=== PATIENT | female | born 1980 | race Caucasian/White ===

== ENCOUNTER → 2016-10-16 13:35 | Observation (INO) ==
[2016-10-16 11:53] VITALS: PULSE 80; RESP 22; TEMP 98.3; O2SAT 97
[2016-10-16 12:24] VITALS: BP 135/77
[~2016-10-16 13:35] MED LIST: SALINE FLUSH 10ml SYRINGE IVF PRN
[2016-10-16 13:36] VITALS: BMI 39.6
== END | disposition home or self-care (01) ==
LOC: MC
PROVIDERS: ADMIT Obstetrics & Gynecology; ATTEND Obstetrics & Gynecology

== ENCOUNTER 2016-10-22 10:50 | Inpatient (IN) ==
[2016-10-22] MEDS ORDERED: FAMOTIDINE PB 20 MG/50 ML BAG IV ONE (11:04)
[2016-10-22] MEDS ORDERED: CEFAZOLIN PREMIX (MC ONLY) 2 GM/50 ML BAG IV ONE (11:04)
[2016-10-22] MEDS ORDERED: CITRIC ACID/SODIUM CITRATE 30ml PO ONE (11:04)
[2016-10-22] MEDS: LR 1,000 ML IV SCH ×3 (11:30→15:10)
[2016-10-22 11:32] VITALS: BMI 40.2
--- NOTE | 2016-10-22 11:57 | Anesthesia Preoperative Report ---
Anesthesia Preoperative Record - Date and Time Date: 10/22/16 Preoperative Diagnosis: previous C Section PIH Proposed Procedure: C Section NPO Since Date: 10/22/16 NPO Since Time: 07:00 (bread pastry) Allergies/Adverse Reactions: Allergies Allergy/AdvReac Type Severity Reaction Status Date / Time No Known Drug Allergies Allergy Unknown Verified 10/22/16 11:42 - Vital Signs Height and Weight: Height 5 ft 4.5 in Weight 107.955 kg Body Mass Index 40.2 - Medications Inpatient Medications: Current Medications Lactated Ringer's (Lactated Ringers) 1,000 mls @ 500 mls/hr IV .Q2H WILIAN Home Medications: Home Medications Medication Instructions Recorded Confirmed Type Acyclovir [Acyclovir] 10/22/16 History Valacyclovir HCl [Valacyclovir] 10/22/16 History Is Patient on Beta Mayank?: No - Medical History Gastrointestional: Reports: Gastroesophageal Reflux Disease, Morbid Obesity - Surgical History GI Surgery/Treatments: Reports: Cholecystectomy (6-7 years ago) Reproductive Surgery/Treatment: Reports: Section Anesthesia Reactions: None Hx Family Anesthesia Reaction: No History of Motion Sickness: No - Social History Smoking Status: Never smoker Hx Chewing Tobacco Use: No Second Hand Exposure: No Substance Use Type: does not use Alcohol Intake: never Alcohol Intake Frequency: does not drink - Pertinent Findings Laboratory: CBC and BMP 10/22/16 11:25 10/22/16 11:25 BMP 10/22/16 11:25 Sodium 137 Potassium 4.3 Chloride 109 H Carbon Dioxide 20 L BUN 11.0 Creatinine 0.5 L Glucose 75 Calcium 8.7 Liver Function 10/22/16 Range/Units 11:25 Total Bilirubin 0.30 (0.20-1.30) MG/DL AST 24 (14-36) U/L ALT 28 (9-52) U/L Alkaline Phosphatase 183 H (38-126) U/L Albumin 3.4 L (3.5-5.0) G/DL - Physical Exam Respiratory Exam: Present: lungs clear, bilateral breath sounds equal Cardiovascular Exam: Present: regular rate and rhythm, no murmur - Airway Assessment Mallampati Score: III TMD: 3 Fingerbreadths Neck Extension: good Overall Assessment: may be difficult mask vent, may be difficult intubation - ASA ASA Score: 3 - Plan Regional/Trunk Block: Spinal - Discussion Discussion: Discussed risks/options/alternatives of anesthesia and questions answered. Patient consents. Nursing pain assessment noted. Present for Discussion: family member, other (Fred saldivar speaking slovak ) Attestation Statement: Prior to the delivery of any anesthetic medication, I examined the patient, developed the plan, obtained the patient's consent and discussed the risk and benefits of the procedure with the patient/guardian. - Additional Information Seen by Anesthesia: Yes
[2016-10-22] MEDS ORDERED: NALOXONE 2 MG/2 ML INJECTION PFS IVP PRN (12:02)
[2016-10-22] MEDS ORDERED: NALBUPHINE 10 MG/ML INJECTION IVP PRN (12:02)
[2016-10-22] MEDS ORDERED: TRANEXAMIC ACID 1gm/NS 100ml IRR MIX IR ONE (12:33)
--- NOTE | 2016-10-22 12:38 | OB/GYN History & Physical ---
- History of Present Illness Date of Admission: 10/22/16 10:50 Reason for Admission: other History of Present Illness: 36 y/o with 2 prior LTCS presented at 37w6d with TN. Sent to L&D for PIH lab and RLTCS. Pt denies GONZALEZ reports occasional vision changes anddenies RUQ pain. Expected Date of Delivery: 11/06/16 : 4 Para: 2 Review of Systems - Review of Systems All systems: reviewed and no additional remarkable complaints except as stated - Respiratory Respiratory: Present: as per HPI - Gastrointestinal Gastrointestinal: Present: as per HPI - Genitourinary Genitourinary: Present: as per HPI Menstruation: Present: as per HPI - Integumentary/Breasts Integumentary: Present: as per HPI - Neurological Neurological: Present: as per HPI - Psychiatric Psychiatric: Present: as per HPI - Endocrine Endocrine: Present: as per HPI - Hematologic/Lymphatic Hematologic/Lymphatic: Present: as per HPI - Allergic/Immunologic Allergic/Immunologic: Present: as per HPI PFS Patient Stated Medical History Hypertension Yes Other Cardiology Yes: pt's mother had blood clot Gastroesophageal Reflux Yes Disease Herpes Yes: on acyclovir Maternal Gestational Diabetes No Now Yes Surgical History: LTCSx2 Family History: Non contributory - Social History Smoking status: Never smoker second hand exposure: No Substance use type: does not use Alcohol intake frequency: does not drink Current occupational status: unemployed Current occupation: Homemaker Current occupational exposures/hazards: No Does patient use chewing tobacco?: No Medications Home Medications Medication Instructions Recorded Confirmed Type Acyclovir [Acyclovir] 10/22/16 History Allergies Allergy/AdvReac Type Severity Reaction Status Date / Time No Known Drug Allergies Allergy Unknown Verified 10/22/16 11:42 Exam - Constitutional Present: no acute distress - Neck Exam Present: supple - Respiratory Exam Present: CTA bilaterally - Cardiovascular Exam Present: RRR - Abdominal Exam Present: soft, surgical scars Comments: Gravid - Extremities Exam Extremities: Present: non tender - Neurological Exam Present: alert, oriented X3 - Skin Exam Present: intact - Psychiatric Exam Present: normal affect LATEX SPOOLER Results - Labs CBC & Chem 7: 10/22/16 11:25 10/22/16 11:25 Antepartum Assessment and Plan (1) Term Current visit: Yes Status: Acute (2) Gestational hypertension Current visit: Yes Status: Acute Plan: Admit for C/S ([facility] Labs. P. ) (3) Herpes Current visit: Yes Status: Acute
[2016-10-22] MEDS ORDERED: FentaNYL 100 MCG/2 ML INJECTION ONE (12:47)
[2016-10-22] MEDS ORDERED: MORPHINE SULFATE PF 5mg/10ml INJ (Duramorph) ONE (12:51)
[2016-10-22] MEDS ORDERED: ONDANSETRON 4 MG/2 ML INJECTION ONE (12:51)
[2016-10-22] MEDS ORDERED: OXYTOCIN 10 UNIT/ML INJECTION ONE (12:51)
[2016-10-22] MEDS ORDERED: EPHEDRINE 50mg/ml INJECTION ONE (13:07)
[2016-10-22] MEDS ORDERED: OXYTOCIN DRIP 30 UNIT/500 ML ML IV SCH ×2 (13:45→14:15)
[2016-10-22] MEDS ORDERED: DiphenhydrAMINE 25 MG CAPSULE PO PRN (14:08)
[2016-10-22] MEDS ORDERED: SIMETHICONE 80 MG CHEWABLE TABLET PO PRN (14:08)
[2016-10-22] MEDS ORDERED: ONDANSETRON 4 MG/2 ML INJECTION IVP PRN (14:08)
[2016-10-22] MEDS ORDERED: IBUPROFEN 800 MG TABLET PO PRN (14:08)
[2016-10-22] MEDS ORDERED: HYDROCORTISONE 2.5% CREAM 30gm RECTALLY PRN (14:08)
[2016-10-22] MEDS ORDERED: ACETAMINOPHEN 500 MG TABLET PO PRN (14:08)
[2016-10-22] MEDS ORDERED: SALINE FLUSH 10ml SYRINGE IVF PRN (14:08)
--- NOTE | 2016-10-22 14:14 | Operative Note ---
Operative Note - Date of Operation Date of Operation: 10/22/16 - General : 4 Para: 2 Expected Date of Delivery: 11/06/16 Estimated or Known Gestational Age (weeks): 37 - Preoperative Diagnosis Previous Section, Gestational Hypertension - Postoperative Diagnosis previous section, Gestational Hypertension - Procedure Repeat, Low-transverse - Surgeon Surgeon: Surgeon: Julian Williamson DO - [employer] Mercedes Finn MD - Anesthesia Anesthesia Provider: Baldemar Reno CRNA Anesthesia Type: Spinal - Complications Complications: None - Estimated Blood Loss Estimated Blood Loss:: 600 - Findings Findings: viable female - APGARS : 8/9 - Haskell Weight 2810 kg - Name Haskell Name: Desi - Indications Indications: GHTN, PLTCS, Term - Description of Procedure Description of Procedure: See Dictation.
[2016-10-22] MEDS: D5LR 1,000 ML IV SCH (15:08)
[2016-10-22] MEDS: Oxycodone/Acetaminophen 5/325 1 TAB PO PRN ×2 (16:16→20:34)
--- NOTE | 2016-10-22 18:33 | Anesthesia Postoperative Note ---
- Date and Time Date: 10/22/16 Time: 18:33 - Status Patient Participated in Evaluation: Patient Participated in Person Vital Signs: Temperature 98.3 F 10/22/16 12:23 Pulse Rate 79 10/22/16 12:23 Respiratory Rate 16 10/22/16 12:23 Blood Pressure 145/73 H 10/22/16 12:23 Oxygen Delivery Method Room Air Respiratory Function: Airway Patent Cardiovascular Function: Regular Pulse EKG Rhythm: Normal Sinus Rhythm Mental Status: Alert and Oriented Pain Intensity: 0 Hydration: Taking PO Fluids Complications During Recover: None Apparent - Follow-Up Instructions Instructions: Per Surgeon
[2016-10-22] MEDS: SIMETHICONE 80 MG CHEWABLE TABLET PO SCH (20:34)
[2016-10-23] MEDS: SIMETHICONE 80 MG CHEWABLE TABLET PO SCH ×5 (00:49→22:55)
[2016-10-23] MEDS: Oxycodone/Acetaminophen 5/325 1 TAB PO PRN ×5 (00:49→22:54)
--- NOTE | 2016-10-23 08:25 | OB/GYN Progress Note ---
<Jazmyne Mcdonald - Last Filed: 10/23/16 08:21> OB-PP Progress Note - General POD:: POD1 - Subjective Date: 10/23/16 Lochia: Moderate Pain: contolled Voiding: voiding, not voiding Voiding: Alford DC'd approx. an hour ago. has not voided yet. Nausea or Vomiting Present: No - Objective Vital Signs: Last Vital Signs Temp 98.4 F 10/23/16 07:00 Pulse 73 10/23/16 07:00 Resp 16 10/23/16 07:00 BP 117/79 10/23/16 07:00 Pulse Ox 96 10/23/16 07:00 Urine Output: good General: alert and oriented Respiratory: non-labored Abdomen: fundus firm Incision: intact Incision: Tegaderm intact. Wound vac in place. Edema: none Laboratory: Laboratory Results - last 24 hr 10/22/16 10/22/16 10/22/16 11:25 11:25 11:26 WBC 12.3 H RBC 4.81 Hgb 9.2 L Hct 30.4 L MCV 63.2 L MCH 19.1 L MCHC 30.3 L RDW Std Deviation 38.0 Plt Count 213 MPV Not performed Immature Gran % (Auto) Not performed Neut % (Auto) Not performed Lymph % (Auto) Not performed Wayne % (Auto) Not performed Eos % (Auto) Not performed Baso % (Auto) Not performed Neut # Not performed Lymph # Not performed Wayne # Not performed Eos # Not performed Baso # Not performed Abs Immat Gran (auto) Not performed Neutrophils % (Manual) 68.0 H Band Neutrophils % 1.0 Lymphocytes % (Manual) 24.0 Monocytes % (Manual) 3.0 Eosinophils % (Manual) 4.0 Neutrophils # (Manual) 8.4 H Band Neutrophils # 0.1 Lymphocytes # (Manual) 3.0 Monocytes # (Manual) 0.4 Eosinophils # (Manual) 0.5 Polychromasia 1+ Poikilocytosis 2+ Anisocytosis 1+ Target Cells 1+ RBC Morph Comment Abnormal Turbidity < 20 Sodium 137 Potassium 4.3 Chloride 109 H Carbon Dioxide 20 L Anion Gap 8 BUN 11.0 Creatinine 0.5 L GFR Calculation 138 BUN/Creatinine Ratio 22 Glucose 75 Calculated Osmolality 262 Calcium 8.7 Total Bilirubin 0.30 Conjugated Bilirubin 0.00 Unconjugated Bilirubin 0.10 Icterus Index < 2 AST 24 ALT 28 Alkaline Phosphatase 183 H Total Protein 6.5 Albumin 3.4 L Globulin 3.1 Albumin/Globulin Ratio 1.1 Specimen Hemolysis < 15 Blood Type O Positive Antibody Screen Negative 10/22/16 17:38 WBC 17.4 H D RBC 4.93 Hgb 9.5 L Hct 31.1 L MCV 63.1 L MCH 19.3 L MCHC 30.5 L RDW Std Deviation 37.9 Plt Count 200 MPV Not performed Immature Gran % (Auto) Neut % (Auto) Lymph % (Auto) Wayne % (Auto) Eos % (Auto) Baso % (Auto) Neut # Lymph # Wayne # Eos # Baso # Abs Immat Gran (auto) Neutrophils % (Manual) Band Neutrophils % Lymphocytes % (Manual) Monocytes % (Manual) Eosinophils % (Manual) Neutrophils # (Manual) Band Neutrophils # Lymphocytes # (Manual) Monocytes # (Manual) Eosinophils # (Manual) Polychromasia Poikilocytosis Anisocytosis Target Cells RBC Morph Comment Turbidity Sodium Potassium Chloride Carbon Dioxide Anion Gap BUN Creatinine GFR Calculation BUN/Creatinine Ratio Glucose Calculated Osmolality Calcium Total Bilirubin Conjugated Bilirubin Unconjugated Bilirubin Icterus Index AST ALT Alkaline Phosphatase Total Protein Albumin Globulin Albumin/Globulin Ratio Specimen Hemolysis Blood Type Antibody Screen - Assessment (1) Term Status: Acute (2) Gestational hypertension Status: Acute (3) Herpes Status: Acute - Assessment Assessment: Repeat C/S - Plan Plan: routine care (Q&A with patient via [employer] medical interpreter. ) <Julian Williamson L - Last Filed: 10/23/16 18:02> OB-PP Progress Note - Subjective Date: 10/23/16 - Objective Vital Signs: Last Vital Signs Temp 98.3 F 10/23/16 15:45 Pulse 92 10/23/16 15:45 Resp 16 10/23/16 15:45 BP 146/83 H 10/23/16 15:45 Pulse Ox 95 10/23/16 15:45 Laboratory: Laboratory Results - last 24 hr 10/22/16 10/22/16 12:20 17:38 WBC 17.4 H D RBC 4.93 Hgb 9.5 L Hct 31.1 L MCV 63.1 L MCH 19.3 L MCHC 30.5 L RDW Std Deviation 37.9 Plt Count 200 MPV Not performed Creatinine 0.5 L GFR Calculation 138 Urine Protein 19 Urine Collection Time 24 Urine Total Volume 2.750 Urine Creatinine 44.6 Patient Height 163.8 Patient Weight 2810 Creat Clearance 24 Hr 34.0 L Ur Total Protein 24 Hr 522 H - Assessment (1) Term Status: Acute (2) Gestational hypertension Status: Acute (3) Herpes Status: Acute (4) Pre-eclampsia Comment: 24 TUP 300. BP continue in mild range. all other lab WNL. Status: Acute - Plan Plan: routine care S/P C/S POD #1 doing well, denies GONZALEZ,Vision changes, RUQ pain. RPOC.
[2016-10-23] MEDS: DOCUSATE CALCIUM 240 MG CAPSULE PO SCH (09:21)
[2016-10-23] MEDS: D5LR 1,000 ML IV SCH (09:33)
--- NOTE | 2016-10-23 15:43 | Operative Note ---
DATE OF PROCEDURE 10/22/2016 PREOPERATIVE DIAGNOSES 1. Previous section x 2. 2. Gestational hypertension. 3. 37 weeks and 6 days gestational age. POSTOPERATIVE DIAGNOSES Same; delivered. PROCEDURE Repeat low transverse section. SURGEON Dr. Julian Williamson TOOL PROFILING MACHINE SET UP OPERATOR Dr. Mercedes Finn ANESTHESIA Provided by Baldemar Reno CRNA Anesthesia type: Spinal COMPLICATIONS None. ESTIMATED BLOOD LOSS 600 ml FINDINGS Viable female in cephalic presentation, name Desi. Normal-appearing fallopian tubes and ovaries. Approximately 4 cm anterior fundal fibroid. INDICATIONS FOR PROCEDURE This is a 36-year-old, G4, P2-0-1-2, with two prior deliveries that presented to the office with gestational hypertension at 37 weeks gestational age with increasing blood pressures and decision was made to proceed with delivery. We discussed the indications for the procedure along with risk, benefits and alternatives including injury to bowel, bladder, ureters or infant , bleeding with the need for transfusion, , and infection. Questions were elicited and answered and decision was made with patient to proceed to the operating room. PROCEDURE DESCRIPTION In the operating room, spinal epidural was achieved without difficulty. The patient was then prepped and draped in dorsal spine position with a leftward tilt. Preoperative antibiotics and TXA were given. Time-out was performed. At this time a Pfannenstiel skin incision was made and carried through the underlying layers to the fascia. Fascia was then incised in the midline and the facial incision was extended sharply laterally with the Morton scissors. The fascial incision was a superior fascial incision. It was grasped with Marcial clamps, elevated and the rectus muscle dissected off sharply with the scalpel. The superior aspect of the fascial incision was then grasped with the Kochers and elevated and the rectus muscle dissected off with the Morton scissors. The rectus muscles were then sharply in the midline and the peritoneum was then entered bluntly. The peritoneal incision was then extended sharply superiorly and inferiorly with good visualization of the bladder. The bladder blade was then inserted and the bladder flap was created sharply. Bladder blade was then reinserted and the uterine incision was made transverse with a scalpel. Uterine incision was then extended bluntly and the amniotomy was performed, noting clear fluid. The was noted to be in cephalic presentation and was delivered atraumatically. Nose and mouth were suctioned by snuff blender in the room. Cord was clamped and cut and the infant was taken to the baby warmer. The uterus was then exteriorized and cleared of all clot and debris and the uterine incision was repaired with 1-0 Monocryl in a running- locked fashion. Excellent hemostasis was noted and the uterus was returned to the abdomen. Gutters were cleared of all clot and debris and the peritoneum was closed with 3-0 Monocryl in a running fashion and the fascia was then closed with 0 Vicryl in a running fashion. Incision was then irrigated and the subcu layer was closed with 2-0 plain gut in a running fashion and the skin was closed with 4-0 Monocryl subcuticular. A perineal wound care system was then applied. The patient tolerated the procedure well. Sponge, lap and needle counts were correct x 2 and the patient was taken to the recovery room in stable condition. [place]
[2016-10-23] MEDS: IBUPROFEN 800 MG TABLET PO PRN (16:04)
[2016-10-23 17:08] VITALS: RESP 16
[2016-10-23 23:17] VITALS: O2SAT 97
[2016-10-24] MEDS: Oxycodone/Acetaminophen 5/325 1 TAB PO PRN ×2 (05:18→10:12)
[2016-10-24 06:34] VITALS: BP 139/86; PULSE 89; TEMP 98.6
--- NOTE | 2016-10-24 08:16 | Discharge Instructions ---
Discharge Plan - Med Rec/Dispo Prescriptions: New Docusate Calcium [Surfak] 240 mg PO DAILY #30 capsule Ibuprofen [Motrin] 800 mg PO Q8H PRN #40 tablet PRN Reason: Pain Oxycodone/APAP 5/325 [Percocet 5/325] 1 - 2 tab PO Q4H PRN #30 tablet PRN Reason: Pain No Action Acyclovir [Acyclovir]
[2016-10-24] MEDS: IBUPROFEN 800 MG TABLET PO PRN (08:27)
[2016-10-24] MEDS: DOCUSATE CALCIUM 240 MG CAPSULE PO SCH (08:27)
== END 2016-10-24 10:30 | disposition home or self-care (01) | DRG 765 ==
LOC: MC 10:53
PROVIDERS: ADMIT Obstetrics & Gynecology; ATTEND Obstetrics & Gynecology